=== PATIENT | male | born 1970 | race Caucasian/White ===

== ENCOUNTER 2017-02-13 21:05 | Emergency (ER) | payer MEDICAID ==
[~2017-02-13] VITALS: Ht 182.9 cm; Wt 108.0 kg
[~2017-02-13 21:05] MED LIST: UNK DIURETIC
[2017-02-13] MEDS ORDERED: CLIN-60 PO (21:15)
[2017-02-13] MEDS ORDERED: PROP20TA PO (21:15)
[2017-02-13] MEDS ORDERED: LISI-170 PO (21:15)
[2017-02-13 22:56] VITALS: BP 122/74
== END 2017-02-13 22:58 | disposition home or self-care (01) ==
LOC: ED 22:18
DX: S00.12XA Contusion of left eyelid and periocular area, initial encounter (principal); S00.83XA Contusion of other part of head, initial encounter; I10 Essential (primary) hypertension; Y04.0XXA Assault by unarmed brawl or fight, initial encounter
CPT/HCPCS: 70150; 70450; 99284

== ENCOUNTER 2017-03-15 11:10 | Emergency (ER) | payer MEDICAID ==
[~2017-03-15] VITALS: Ht 182.9 cm; Wt 104.2 kg
[~2017-03-15 11:10] MED LIST changes: +CLIN150C14 PO; +LISI-170 PO; +PROP20TA PO
[2017-03-15 16:05] VITALS: BP 121/75
== END 2017-03-15 16:15 | disposition home or self-care (01) ==
LOC: ED 14:53
DX: S92.212A Displaced fracture of cuboid bone of left foot, initial encounter for closed fracture (principal); X58.XXXA Exposure to other specified factors, initial encounter; Y93.89 Activity, other specified; Y92.89 Other specified places as the place of occurrence of the external cause; Y99.8 Other external cause status
CPT/HCPCS: 29515

== ENCOUNTER 2017-03-25 10:16 | Emergency (ER) | payer MEDICAID ==
[~2017-03-25] VITALS: Ht 182.9 cm; Wt 100.3 kg
[2017-03-25 10:17] VITALS: BP 152/96
[2017-03-25] MEDS ORDERED: THIAMINE 100MG TABLET PO ONE (11:00)
[2017-03-25] MEDS ORDERED: THIAMINE 100MG TABLET ONE (11:09)
== END 2017-03-25 11:51 | disposition home or self-care (01) ==
LOC: ED 11:27
DX: S92.202A Fracture of unspecified tarsal bone(s) of left foot, initial encounter for closed fracture (principal); M19.072 Primary osteoarthritis, left ankle and foot; I10 Essential (primary) hypertension; F10.229 Alcohol dependence with intoxication, unspecified; X58.XXXA Exposure to other specified factors, initial encounter; Y93.89 Activity, other specified; Y99.8 Other external cause status; Y92.89 Other specified places as the place of occurrence of the external cause
CPT/HCPCS: 99284

== ENCOUNTER 2017-09-15 18:08 | Emergency (ER) | payer MEDICAID ==
[~2017-09-15] VITALS: Ht 182.9 cm; Wt 101.0 kg
[2017-09-15] MEDS ORDERED: SODIUM CHLORIDE 0.9% 1,000ML IVBOLUS ONE (18:30)
[2017-09-15 18:52] LABS: ALANINE AMINOTRANSFERASE 58 U/L (12-78); ALBUMIN 3.8 g/dL (3.4-5.0); ANION GAP 9 mmol/L (5-15); CALCIUM 8.6 mg/dL (8.5-10.1); CHLORIDE 105 mmol/L (98-107); CREATININE 0.73 mg/dL (0.7-1.3)
[2017-09-15 18:56] LABS: ALKALINE PHOSPHATASE 120 U/L (45-117); BILIRUBIN,TOTAL 1.1 mg/dL (0.2-1.0); TOTAL PROTEIN 8.5 g/dL (6.4-8.2)
[2017-09-15 19:06] LABS: BASOPHILS # (AUTO) 0.06 x10^3/uL (0-0.1); BASOPHILS % (AUTO) 1 % (0-1); EOSINOPHILS # (AUTO) 0.04 x10^3/uL (0-0.4); EOSINOPHILS % (AUTO) 1 % (1-7); LYMPHOCYTES # (AUTO) 1.47 x10^3/uL (1-3.4); LYMPHOCYTES % (AUTO) 32 % (22-44); MD SCAN; MEAN CORPUSCULAR HEMOGLOBIN 32.5 pg (27.5-34.5); MEAN CORPUSCULAR HGB CONC 34.1 g/dL (33.2-36.2); MEAN CORPUSCULAR VOLUME 95.5 fL (81-97); MEAN PLATELET VOLUME 6.6 fL (7.4-10.4); MONOCYTES % (AUTO) 11 % (2-9); NEUTROPHILS # (AUTO) 2.49 x10^3/uL (1.8-6.8); NEUTROPHILS % (AUTO) 55 % (42-75); PLATELET COUNT 76 x10^3/uL (130-400); RED BLOOD COUNT 4.52 x10^6/uL (4.38-5.82); RED CELL DISTRIBUTION WIDTH 16.8 % (9.4-14.8)
[2017-09-15 19:31] LABS: AMPHETAMINE SCREEN, URINE Negative (Negative); BARBITURATE SCREEN, URINE Negative (Negative); BENZODIAZEPINE SCREEN, URINE Negative (Negative); CANNABINOID SCREEN, URINE Negative (Negative); COCAINE SCREEN, URINE Negative (Negative); METHADONE SCREEN, URINE Negative (Negative); OPIATE SCREEN, URINE Negative (Negative)
[2017-09-15 21:55] VITALS: BP 142/85
== END 2017-09-15 23:32 | disposition home or self-care (01) ==
LOC: ED 22:25
DX: F10.20 Alcohol dependence, uncomplicated (principal); F19.20 Other psychoactive substance dependence, uncomplicated; R79.89 Other specified abnormal findings of blood chemistry; B35.9 Dermatophytosis, unspecified; I10 Essential (primary) hypertension; Z79.899 Other long term (current) drug therapy
CPT/HCPCS: 36415; 70450; 71045; 80053; 80307; 85025; 93005; 96360; 99285; J7030

== ENCOUNTER 2017-11-13 13:59 | Emergency (ER) | payer MEDICAID ==
[~2017-11-13] VITALS: Ht 172.7 cm; Wt 85.0 kg
[~2017-11-13 13:59] MED LIST changes: +BUSP5TAB2 PO; +CEPH-376 PO; +SULF-169 PO
[2017-11-13] MEDS ORDERED: ONDANSETRON ODT 4 MG PO ONE (14:30)
[2017-11-13] MEDS ORDERED: THIAMINE 100MG TABLET PO ONE (14:30)
[2017-11-13] MEDS ORDERED: SODIUM CHLORIDE FLUSH 10ML SYR IVF ONE (14:30)
[2017-11-13] MEDS ORDERED: SODIUM CHLORIDE 0.9% 1,000ML IVBOLUS ONE (14:30)
[2017-11-13 15:08] LABS: ALANINE AMINOTRANSFERASE 30 U/L (12-78); ALBUMIN 3.6 g/dL (3.4-5.0); ANION GAP 9 mmol/L (5-15); CALCIUM 7.9 mg/dL (8.5-10.1); CHLORIDE 105 mmol/L (98-107); CREATININE 0.72 mg/dL (0.7-1.3)
[2017-11-13 15:10] LABS: ALKALINE PHOSPHATASE 100 U/L (45-117); BILIRUBIN,TOTAL 0.9 mg/dL (0.2-1.0); TOTAL PROTEIN 8.1 g/dL (6.4-8.2)
[2017-11-13] MEDS ORDERED: THIAMINE 100MG TABLET ONE (15:10)
[2017-11-13] MEDS ORDERED: ONDANSETRON ODT 4 MG ONE (15:10)
[2017-11-13 15:19] LABS: MEAN CORPUSCULAR HEMOGLOBIN 31.7 pg (27.5-34.5); MEAN CORPUSCULAR HGB CONC 33.9 g/dL (33.2-36.2); MEAN CORPUSCULAR VOLUME 93.7 fL (81-97); MEAN PLATELET VOLUME 6.3 fL (7.4-10.4); PLATELET COUNT 65 x10^3/uL (130-400); RED BLOOD COUNT 4.06 x10^6/uL (4.38-5.82); RED CELL DISTRIBUTION WIDTH 14.7 % (9.4-14.8)
[2017-11-13 15:20] LABS: BASOPHILS # (AUTO) 0.07 x10^3/uL (0-0.1); BASOPHILS % (AUTO) 2 % (0-1); EOSINOPHILS # (AUTO) 0.02 x10^3/uL (0-0.4); EOSINOPHILS % (AUTO) 1 % (1-7); LYMPHOCYTES # (AUTO) 1.31 x10^3/uL (1-3.4); LYMPHOCYTES % (AUTO) 39 % (22-44); MONOCYTES # (AUTO) 0.26 x10^3/uL (0.2-0.8); MONOCYTES % (AUTO) 8 % (2-9); NEUTROPHILS # (AUTO) 1.67 x10^3/uL (1.8-6.8); NEUTROPHILS % (AUTO) 50 % (42-75)
[2017-11-13 15:23] LABS: MD MORPH REVIEW ONLY
[2017-11-13 15:25] LABS: <PLATELET ESTIMATE> DECREASED; <PLT MORPHOLOGY> NORMAL PLT MORPH; <RBC MORPHOLOGY> NORMAL
[2017-11-13 15:56] LABS: MICROSCOPIC NOT IND
[2017-11-13 15:58] LABS: CULTURE INDICATED? NO
[2017-11-13 17:10] VITALS: BP 128/78
== END 2017-11-13 17:11 | disposition home or self-care (01) ==
LOC: ED 16:30
DX: R55 Syncope and collapse (principal); F10.129 Alcohol abuse with intoxication, unspecified; I10 Essential (primary) hypertension
CPT/HCPCS: 71045; 80053; 81003; 82962; 83690; 85025; 93005; 96360; 99285; J7030; Q0162

== ENCOUNTER 2017-12-22 18:46 | Emergency (ER) | payer MEDICAID ==
[~2017-12-22] VITALS: Ht 172.7 cm; Wt 85.0 kg
[2017-12-22] MEDS ORDERED: CHLORDIAZEPOXIDE 25 MG CAPSULE PO ONE (19:30)
[2017-12-22] MEDS ORDERED: SODIUM CHLORIDE 0.9%, 500ML IVBOLUS ONE (19:30)
[2017-12-22] MEDS ORDERED: CHLORDIAZEPOXIDE 25 MG CAPSULE ONE (19:40)
[2017-12-22 20:32] LABS: INTERNATIONAL NORMALIZED RATIO 1.2 (0.93-1.1); PROTHROMBIN TIME 12.3 Seconds (9.6-11.5)
[2017-12-22 20:38] LABS: ALANINE AMINOTRANSFERASE 36 U/L (12-78); ALBUMIN 3.2 g/dL (3.4-5.0); ANION GAP 13 mmol/L (5-15); CHLORIDE 102 mmol/L (98-107); CREATININE 0.61 mg/dL (0.7-1.3)
[2017-12-22 20:40] LABS: ALKALINE PHOSPHATASE 120 U/L (45-117); BILIRUBIN,TOTAL 1.2 mg/dL (0.2-1.0); TOTAL PROTEIN 7.3 g/dL (6.4-8.2)
[2017-12-22 20:55] LABS: BASOPHILS # (AUTO) 0.04 x10^3/uL (0-0.1); BASOPHILS % (AUTO) 1 % (0-1); EOSINOPHILS % (AUTO) 0 % (1-7); LYMPHOCYTES # (AUTO) 0.52 x10^3/uL (1-3.4); LYMPHOCYTES % (AUTO) 13 % (22-44); MD SCAN; MEAN CORPUSCULAR HEMOGLOBIN 30.3 pg (27.5-34.5); MEAN CORPUSCULAR HGB CONC 33.2 g/dL (33.2-36.2); MEAN CORPUSCULAR VOLUME 91.4 fL (81-97); MONOCYTES # (AUTO) 0.42 x10^3/uL (0.2-0.8); MONOCYTES % (AUTO) 10 % (2-9); NEUTROPHILS # (AUTO) 3.12 x10^3/uL (1.8-6.8); NEUTROPHILS % (AUTO) 76 % (42-75); RED BLOOD COUNT 3.79 x10^6/uL (4.38-5.82); RED CELL DISTRIBUTION WIDTH 16.3 % (9.4-14.8)
[2017-12-22 20:57] LABS: MEAN PLATELET VOLUME 6.7 fL (7.4-10.4); PLATELET COUNT 41 x10^3/uL (130-400)
[2017-12-22 20:58] VITALS: BP 122/78
== END 2017-12-22 21:37 | disposition home or self-care (01) ==
LOC: ED 19:10
DX: F10.239 Alcohol dependence with withdrawal, unspecified (principal); K70.30 Alcoholic cirrhosis of liver without ascites; I10 Essential (primary) hypertension
CPT/HCPCS: 36415; 80053; 85025; 85610; 93005; 99285; J7040

== ENCOUNTER 2018-07-18 12:20 | Emergency (ER) | payer MEDICAID ==
[~2018-07-18] VITALS: Ht 182.9 cm; Wt 95.5 kg
--- NOTE | 2018-07-18 12:35 | NUR ---
BREAK RN FOR PRIMARY RN BILL. PREET SNELL, PT REPORTS "SPITTING UP GREEN STUFF AND YELLOW STUFF COMING OUT NOSE, COUGHING, I THINK I HAVE BRONCHITIS OR WALKING PNEUMONIA. I'VE BEEN DRINKING TODAY, HAD A 12 PACK OF BEER, I NEED TO GET INTO A DETOX PROGRAM AND I'M HERE FOR AN MRI FOR SHOULDERS, KNEES, FEET AND HANDS, I THINK I HAVE RA IT RUNS IN MY FAMILY." PT AMBULATORY WITH STEADY GAIT. A&OX4. CONT PULSE OX, BP, CARDIAC MONITORS APPLIED. SR ON MONITOR. VSS. DENIES ANY CP, SOB. RATES BODY PAIN 04/17. CALL LIGHT IN REACH. FALL PERCAUTIONS IN PLACE. AWAITING EVAL BY ERP.
--- NOTE | 2018-07-18 12:50 | NUR ---
DR. SPRAGUE AT BEDSIDE FOR EVALUATION
--- NOTE | 2018-07-18 13:20 | NUR ---
BEDSIDE REPORT AND CARE TO BILL RN AT THIS TIME.
[2018-07-18 14:57] VITALS: BP 130/65
== END 2018-07-18 14:59 | disposition home or self-care (01) ==
LOC: ED 13:26
DX: J06.9 Acute upper respiratory infection, unspecified (principal); F10.120 Alcohol abuse with intoxication, uncomplicated; I10 Essential (primary) hypertension; Z87.01 Personal history of pneumonia (recurrent); Y90.9 Presence of alcohol in blood, level not specified
CPT/HCPCS: 71046; 99283

== ENCOUNTER 2018-11-28 20:22 | Emergency (ER) | payer MEDICAID ==
[~2018-11-28] VITALS: Ht 182.9 cm; Wt 100.0 kg
[2018-11-28] MEDS ORDERED: LISINOPRIL PO (20:34)
--- NOTE | 2018-11-28 20:52 | NUR ---
PT PLACED IN HOSPITAL GOWN. PT ABLE TO REMOVE ALL CLOTHING. PT SPEECH SLURRED. PT PLACED ON VITALS MONITORS. PT DESATING TO 84% ON RA. PT PLACED ON 4L O2, SATING 94%. EKG DONE. PT GIVEN WARM BLANKET. BILAT BEDRAILS UP.
[2018-11-28 21:16] LABS: MEAN CORPUSCULAR HEMOGLOBIN 25.6 pg (27.5-34.5); MEAN CORPUSCULAR HGB CONC 31.9 g/dL (33.2-36.2); MEAN CORPUSCULAR VOLUME 80.2 fL (81-97); MEAN PLATELET VOLUME 6.5 fL (7.4-10.4); PLATELET COUNT 131 x10^3/uL (130-400); RED BLOOD COUNT 4.28 x10^6/uL (4.38-5.82); RED CELL DISTRIBUTION WIDTH 22.2 % (9.4-14.8)
[2018-11-28 21:20] LABS: ALANINE AMINOTRANSFERASE 36 U/L (12-78); ALBUMIN 3.6 g/dL (3.4-5.0); ANION GAP 9 mmol/L (5-15); CALCIUM 7.8 mg/dL (8.5-10.1); CHLORIDE 111 mmol/L (98-107)
[2018-11-28 21:24] LABS: ALKALINE PHOSPHATASE 91 U/L (45-117); BILIRUBIN,TOTAL 0.4 mg/dL (0.2-1.0); TOTAL PROTEIN 8.1 g/dL (6.4-8.2); TROPONIN I < 0.015 ng/mL (0.000-0.045)
[2018-11-28 21:37] LABS: MD YES
[2018-11-28 21:43] LABS: BAND#(MANUAL) 0.03 x10^3/uL; BANDS%(MANUAL) 1 % (0-7); EOS#(MANUAL) 0.03 x10^3/uL (0.0-0.4); EOS% (MANUAL) 1 % (1-7); LYMPH#(MANUAL) 1.39 x10^3/uL (1-3.4); LYMPHS% (MANUAL) 42 % (22-44); MONOS#(MANUAL) 0.33 x10^3/uL (0.3-2.7); MONOS% (MANUAL) 10 % (2-9); REACTIVE LYMPHS # (MANUAL) 0.03 x10^3/uL (0-0); REACTIVE LYMPHS % (MANUAL) 1 % (0-0); SEG#(MANUAL) 1.49 x10^3/uL (1.8-6.8); SEGS% (MANUAL) 45 % (42-75)
[2018-11-28 21:44] LABS: ANISOCYTOSIS 1+; MICROCYTOSIS 1+
[2018-11-28 21:45] LABS: HYPOCHROMIA 1+
[2018-11-28 21:46] LABS: <PLATELET ESTIMATE> ADEQUATE
[2018-11-28 21:47] LABS: <PLT MORPHOLOGY> NORMAL PLT MORPH
--- NOTE | 2018-11-28 21:58 | NUR ---
PT GETTING UP OUT OF BED AND DUMPING HIS URINE DOWN THE SINK. PT CALLED [facility] TO INFORM MT THAT HE DID SO, ALSO THAT HE GOT BACK INTO BED AND PUT HIS O2 BACK ON. THIS RN WENT TO CHECK ON PT. PT HAD ONLY STUCK PRONGS OF O2 IN NOSE, O2 SATS IN THE 90s. PT TO BE TRIALED ON RA. PT A&OX4. STATED HE LIVES IN THE STREETS. ERP AWARE PT UP WALKING STEADILY AND VSS.
[2018-11-28 22:00] VITALS: BP 104/85
== END 2018-11-28 22:33 | disposition home or self-care (01) ==
LOC: ED 21:22
DX: R07.89 Other chest pain (principal); D64.9 Anemia, unspecified; I10 Essential (primary) hypertension
CPT/HCPCS: 36415; 71045; 80053; 84484; 85025; 93005; 99284

== ENCOUNTER 2019-05-30 14:20 | Emergency (ER) | payer MEDICAID ==
[~2019-05-30] VITALS: Ht 182.9 cm; Wt 104.5 kg
[~2019-05-30 14:20] MED LIST changes: +LISINOPRIL PO
[2019-05-30] MEDS ORDERED: LORazepam 2 MG/ML, 1ML IVPush STA (14:40)
[2019-05-30] MEDS ORDERED: ACETAMINOPHEN 500 MG TABLET ONE (14:48)
[2019-05-30] MEDS ORDERED: LORazepam 2 MG/ML, 1ML ONE (14:49)
[2019-05-30] MEDS ORDERED: ACETAMINOPHEN 500 MG TABLET PO ONE (15:00)
[2019-05-30] MEDS ORDERED: SODIUM CHLORIDE 0.9% 1,000ML IVBOLUS ONE (15:00)
[2019-05-30 15:26] LABS: ALANINE AMINOTRANSFERASE 19 U/L (12-78); ALBUMIN 3.3 g/dL (3.4-5.0); ANION GAP 6 mmol/L (5-15); CALCIUM 8.3 mg/dL (8.5-10.1); CHLORIDE 110 mmol/L (98-107); CREATININE 0.91 mg/dL (0.7-1.3)
--- NOTE | 2019-05-30 15:30 | NUR ---
IV ESTABLISHED AND PT MEDICATED PER MAR, AWAITNIG LAB AND RAD RESULTS. PT ON MONITOR, CALL LIGHT WITHIN REACH.
[2019-05-30 15:33] LABS: ALKALINE PHOSPHATASE 75 U/L (45-117); BILIRUBIN,TOTAL 0.7 mg/dL (0.2-1.0); TOTAL PROTEIN 7.3 g/dL (6.4-8.2); TROPONIN I < 0.015 ng/mL (0.000-0.045)
[2019-05-30 15:40] LABS: BASOPHILS % (AUTO) 0 % (0-1); EOSINOPHILS # (AUTO) 0.08 x10^3/uL (0-0.4); EOSINOPHILS % (AUTO) 1 % (1-7); LYMPHOCYTES % (AUTO) 2 % (22-44); MD NO; MEAN CORPUSCULAR HEMOGLOBIN 24.5 pg (27.5-34.5); MEAN CORPUSCULAR HGB CONC 31.4 g/dL (33.2-36.2); MEAN CORPUSCULAR VOLUME 77.9 fL (81-97); MEAN PLATELET VOLUME 7.5 fL (7.4-10.4); MONOCYTES % (AUTO) 7 % (2-9); NEUTROPHILS # (AUTO) 5.33 x10^3/uL (1.8-6.8); NEUTROPHILS % (AUTO) 90 % (42-75); PLATELET COUNT 144 x10^3/uL (130-400); RED BLOOD COUNT 3.96 x10^6/uL (4.38-5.82); RED CELL DISTRIBUTION WIDTH 17.6 % (9.4-14.8)
[2019-05-30 16:04] LABS: CULTURE INDICATED? YES; MICROSCOPIC INDICATED
--- NOTE | 2019-05-30 16:34 | NUR ---
PT RESTING IN [facility], AWAITING LAB AND RAD RESULTS. NO NEEDS AT THIS TIME.
[2019-05-30 17:30] VITALS: BP 106/64
--- NOTE | 2019-05-30 17:30 | NUR ---
UPDATED PT ON POC. PT STATES HE FEELS "SHAKY AND SWEATY," REQUESTS MORE ATIVAN. ERP NOTIFIED.
--- NOTE | 2019-05-30 18:35 | NUR ---
ERP WAS IN FOR RECHECK. D/C INSTRUCTIONS, MEDS & F/U APPT RV'WD WITH PT, HE VERBALIZES UNDERSTANDING. RX GIVEN X1. PT AMBULATED OUT OF ED WITHOUT DIFFICULTY, STATES HE WILL TAKE BUS HOME.
== END 2019-05-30 18:49 | disposition home or self-care (01) ==
LOC: ED 18:38
DX: K64.4 Residual hemorrhoidal skin tags (principal); B34.9 Viral infection, unspecified; I10 Essential (primary) hypertension; Z87.01 Personal history of pneumonia (recurrent)
CPT/HCPCS: 36415; 71045; 80053; 81001; 83605; 83690; 84484; 85025; 87040; 87086; 93005; 96374; 99284; J2060; J7030

== ENCOUNTER 2020-01-09 15:18 | Emergency (ER) | payer MEDICAID ==
[~2020-01-09] VITALS: Ht 182.9 cm; Wt 100.0 kg
--- NOTE | 2020-01-09 15:31 | NUR ---
PT BIB EMS FOR METH USE AND ERRATIC BEHAVIOR. PT HAS CO CHEST PAIN. PT HAS FLIGHT OF IDEAS. CONSTANTLY TALKING AND MOVING.
[2020-01-09 15:40] VITALS: BP 143/80
[2020-01-09 15:47] LABS: BASOPHILS # (AUTO) 0.04 x10^3/uL (0-0.1); BASOPHILS % (AUTO) 1 % (0-1); EOSINOPHILS # (AUTO) 0.08 x10^3/uL (0-0.4); EOSINOPHILS % (AUTO) 2 % (1-7); LYMPHOCYTES # (AUTO) 1.37 x10^3/uL (1-3.4); LYMPHOCYTES % (AUTO) 36 % (22-44); MD NO; MEAN CORPUSCULAR HGB CONC 32.9 g/dL (33.2-36.2); MEAN CORPUSCULAR VOLUME 85.3 fL (81-97); MEAN PLATELET VOLUME 6.4 fL (7.4-10.4); MONOCYTES % (AUTO) 8 % (2-9); NEUTROPHILS # (AUTO) 2.05 x10^3/uL (1.8-6.8); NEUTROPHILS % (AUTO) 53 % (42-75); PLATELET COUNT 129 x10^3/uL (130-400); RED BLOOD COUNT 4.92 x10^6/uL (4.38-5.82); RED CELL DISTRIBUTION WIDTH 18.3 % (9.4-14.8)
[2020-01-09 15:53] LABS: AMPHETAMINE SCREEN, URINE Negative (Negative); BARBITURATE SCREEN, URINE Negative (Negative); BENZODIAZEPINE SCREEN, URINE Negative (Negative); CANNABINOID SCREEN, URINE Negative (Negative); COCAINE SCREEN, URINE Negative (Negative); METHADONE SCREEN, URINE Negative (Negative); OPIATE SCREEN, URINE Negative (Negative)
[2020-01-09 15:55] LABS: ALBUMIN 3.8 g/dL (3.4-5.0); ANION GAP 6 mmol/L (5-15); CALCIUM 8.2 mg/dL (8.5-10.1); CHLORIDE 107 mmol/L (98-107); CREATININE 0.77 mg/dL (0.7-1.3)
[2020-01-09 15:58] LABS: TROPONIN I < 0.015 ng/mL (0.000-0.045)
[2020-01-09] MEDS ORDERED: FOLIC ACID 1 MG TABLET PO ONE (16:30)
--- NOTE | 2020-01-09 16:33 | NUR ---
Patient/Caregiver given discharge instructions and they have confirmed that they understand the instructions. Patient ambulatory with steady gait.
== END 2020-01-09 16:53 | disposition home or self-care (01) ==
LOC: ED 16:00
DX: F10.129 Alcohol abuse with intoxication, unspecified (principal); R07.89 Other chest pain; I10 Essential (primary) hypertension; Z76.0 Encounter for issue of repeat prescription; R00.0 Tachycardia, unspecified; Y90.0 Blood alcohol level of less than 20 mg/100 ml
CPT/HCPCS: 36415; 71045; 80048; 80307; 82040; 84484; 85025; 93005; 99285

== ENCOUNTER 2020-05-20 11:47 | Emergency (ER) | payer MEDICAID ==
[~2020-05-20] VITALS: Ht 182.9 cm; Wt 75.0 kg
--- NOTE | 2020-05-20 12:09 | NUR ---
REPORT RECEIVED FROM TORI CRAWFORD FOR TRANSFER OF PATIENT CARE.
--- NOTE | 2020-05-20 12:10 | NUR ---
REPORT TO LASHA, TRANSFER OF CARE AT THIS TIME.
--- NOTE | 2020-05-20 12:21 | NUR ---
ERMD AT BEDSIDE FOR EVALUATION.
--- NOTE | 2020-05-20 12:50 | NUR ---
PATIENT TO IMAGING.
[2020-05-20] MEDS ORDERED: ASPI81TA45 PO (12:59)
[2020-05-20] MEDS ORDERED: MAALOX/HYOSCYAMINE/LIDOCAINE 45 ML BTL ONE (13:12)
--- NOTE | 2020-05-20 13:15 | NUR ---
PATIENT BACK FROM IMAGING, GI COCKTAIL GIVEN.
[2020-05-20 13:21] VITALS: BP 132/71
--- NOTE | 2020-05-20 13:22 | NUR ---
Patient given discharge instructions and they have confirmed that they understand the instructions, all patient belongings gathered and taken with patient. Patient provided bus pass. Patient ambulatory with steady gait from ED.
[2020-05-20] MEDS ORDERED: MAALOX/HYOSCYAMINE/LIDOCAINE 45 ML BTL PO ONE (13:30)
== END 2020-05-20 13:23 | disposition home or self-care (01) ==
LOC: ED 13:15
DX: T18.128A Food in esophagus causing other injury, initial encounter (principal); I10 Essential (primary) hypertension; X58.XXXA Exposure to other specified factors, initial encounter; Y93.89 Activity, other specified; Y92.89 Other specified places as the place of occurrence of the external cause; Y99.8 Other external cause status
CPT/HCPCS: 74022; 99283